=== PATIENT | male | born 1955 ===

== ENCOUNTER → 2021-04-29 21:44 | Outpatient (CLI) | payer SELFPAY ==
[2021-04-29 22:27] LABS: BASOPHILS 1.1 % (0-2); EOSINOPHILS 2.7 % (0-7); HEMOGLOBIN 13.7 g/dL (13.5-17.5); LYMPHOCYTES 24.3 % (15-50); MCH 30.8 pg (26.0-34.0); MCHC 33.4 g/dL (31.0-37.0); MEAN PLATELET VOLUME 9.9 fL (7.4-10.4); MONOCYTES 5.3 % (2-11); NEUTROPHILS 66.6 % (40-80); PLATELET COUNT 192 10x3/uL (130-400); RBC 4.46 10x6/uL (4.20-6.10); RDW 14.4 % (11.5-14.5); WBC 10.2 10x3/uL (4.8-10.8)
[2021-04-29 22:36] LABS: ALBUMIN 3.7 g/dL (3.4-5.0); ANION GAP 17.4 mmol/L (8-16); BILIRUBIN - INDIRECT 0.3 mg/dL (0.00-1.00); BILIRUBIN - TOTAL 0.32 mg/dL (0.2-1.3); CALCIUM 9.4 mg/dL (8.5-10.1); CARBON DIOXIDE 25.6 mmol/L (21.0-32.0); CREATININE - SERUM 1.2 mg/dL (0.6-1.3); PROTEIN - SERUM 7.5 g/dL (6.4-8.2); VANCOMYCIN - TROUGH 17.5 ug/mL (10.0-20.0)
[2021-04-29 22:43] LABS: BILIRUBIN - DIRECT 0.02 mg/dL (0.00-0.30)
== END | disposition home or self-care (01) ==
LOC: D.LABREF 21:44
PROVIDERS: ATTEND Orthopaedic Surgery
DX: M86.9 Osteomyelitis, unspecified (principal); Z79.2 Long term (current) use of antibiotics